=== PATIENT | male | born 1950 | race Caucasian/White ===

== ENCOUNTER 2020-12-07 01:40 | Day surgery (SDC) | payer MEDICARE, SELFPAY ==
[2020-11-24 15:51] VITALS: BMI 38.5
--- NOTE | 2020-12-07 08:56 | WPDANESEPPF ---
Anes - Initial Pre Proc Eval Procedure: Operation Date: 12/07/20 09:30 Proposed Procedures p Screening Colonoscopy - Blanco Mar MD Date/Time: 12/07/20 08:56 Surgeon: Blanco Mar MD Pre Op Diagnosis: hx of colon polyps Patient Data Age: 70 Gender: M Height: 1.83 m Weight: 129 kg Allergies Allergy/AdvReac Type Severity Reaction Status Date / Time Penicillins Allergy Unknown Unknown Verified 12/07/20 08:57 Home Medications Medication Instructions Recorded Confirmed Type doxazosin 2 mg PO QPM 11/24/20 11/24/20 History irbesartan 150 mg PO QPM 11/24/20 11/24/20 History magnesium oxide 500 mg PO DAILY 11/24/20 11/24/20 History smssgwrrhxsz-tee-flky-FA-vit K 1 tablet PO DAILY 11/24/20 11/24/20 History [Adults Multivitamin] omeprazole 20 mg PO QPM 11/24/20 11/24/20 History Patient hx anesthesia problems: none Family hx anesthesia problems: none [facility] Past Medical History Medical History (Updated 12/07/20 @ 08:57 by Huy Laurent MD) HTN (hypertension) Obesity Paroxysmal A-fib Social History Social History Years smoked: 10 Tobacco type: cigarettes and pipe Alcohol intake: never Substance use: never Living arrangements: with family Spiritual care concerns: No Anes - Eval Final PreProcedure Day of Procedure 12/07/20 08:56 Patient weight: obese Heart: regular rate and rhythm Lungs: clear to auscultation Airway: Mallampati scale class II Neurological: alert and oriented Last oral intake: >/= 8 hours ASA classification: III Emergent: no Anesthetic plan: proceed Anesthesia type and monitoring: general GIVS and standard monitoring Informed Consent: The patient's anesthetic plan and its attendant risks and benefits were discussed with the patient/family/POA. Questions were solicited and answers provided to the satisfaction of the patient/family/POA.
[2020-12-07 08:58] VITALS: BP 176/75; PULSE 77; RESP 18; TEMP 36.6; O2SAT 97; BMI 38.0
[2020-12-07] MEDS: LACTATED RINGERS 1,000 ML 30 ML IV CONT (09:02)
--- NOTE | 2020-12-07 10:19 | PM.HPGS ---
History of Present Illness History of Present Illness Consent: Risks, benefits, and alternatives have been discussed and questions answered. Patient agrees to proceed with procedure. Chief complaint: hx of colon polyps Narrative: Bryan Marcial is a 70 year old male Referred for colon cancer screening. He has a history of polyps Review of Systems Review of Systems: All systems reviewed & are unremarkable except as noted in HPI and below PMFSH Past Medical History Medical History HTN (hypertension) Obesity Paroxysmal A-fib Social History Social History Years smoked: 10 Tobacco type: cigarettes and pipe Alcohol intake: never Substance use: never Living arrangements: with family Spiritual care concerns: No Meds Home Medications and Allergies Home Medications Medication Instructions Recorded Confirmed Type doxazosin 2 mg PO QPM 11/24/20 11/24/20 History irbesartan 150 mg PO QPM 11/24/20 11/24/20 History magnesium oxide 500 mg PO DAILY 11/24/20 11/24/20 History dkbmcvmwiamk-awh-mbrz-FA-vit K 1 tablet PO DAILY 11/24/20 11/24/20 History [Adults Multivitamin] omeprazole 20 mg PO QPM 11/24/20 11/24/20 History Allergies Allergy/AdvReac Type Severity Reaction Status Date / Time Penicillins Allergy Unknown Unknown Verified 12/07/20 08:57 Vital Signs Vital Signs - 24 hr 12/07/20 08:58 Temperature 36.6 C Pulse Rate 77 Respiratory Rate 18 Blood Pressure 176/75 H Pulse Oximetry 97 Exam Const: General: alert Orientation/consciousness: patient oriented x3 Resp: Auscultation: clear to auscultation bilaterally Cardio: Rhythm: regular rhythm GI: GI Palp: Yes Soft to palpation and No Tenderness to palpation present (GI) Neuro: General: patient oriented x3 Assessment and Plan Assessment and plan (1) Colon cancer screening: Code(s): Z12.11 - Encounter for screening for malignant neoplasm of colon Status: Acute Assessment and Plan: Colonoscopy with possible biopsy or polypectomy or cautery or injection of substances.
[2020-12-07 10:36] VITALS: BP 121/78; PULSE 80; RESP 28; O2SAT 97
[2020-12-07 10:46] VITALS: BP 151/84; PULSE 75; RESP 21; O2SAT 95
[2020-12-07 10:56] VITALS: BP 160/96; PULSE 68; RESP 25; O2SAT 96
== END 2020-12-07 11:04 | disposition home or self-care (01) ==
PROVIDERS: PCP Internal Medicine; Visit Provider Internal Medicine Gastroenterology
PROC: 0DJD8ZZ Inspection of Lower Intestinal Tract, Via Natural or Artificial Opening Endoscopic (ICD-10-PCS; CPT 45378; principal; 2020-12-07 09:30)
DX: Z12.11 Encounter for screening for malignant neoplasm of colon (principal); Z86.010 Personal history of colon polyps; K57.30 Diverticulosis of large intestine without perforation or abscess without bleeding; K63.5 Polyp of colon; I48.0 Paroxysmal atrial fibrillation; F17.210 Nicotine dependence, cigarettes, uncomplicated; E66.9 Obesity, unspecified; Z68.38 Body mass index [BMI] 38.0-38.9, adult; I10 Essential (primary) hypertension
CPT/HCPCS: 45380; 88305; J2704; J7120

== ENCOUNTER 2023-12-04 20:23 | Emergency (ER) | payer MEDICARE, SELFPAY ==
--- NOTE | ~2023-12-04 | CT_ITS ---
EXAMINATION: CT abdomen pelvis wo con DATE: 12/05/2023 00:32 INDICATION: Right flank pain TECHNIQUE: Computed tomography (CT) of the abdomen and pelvis was performed without intravenous contr ast. Automated exposure control and iterative reconstruction technique were employed. The dose-length product was 1252.67 mGy-cm. COMPARISON: 12/27/2008 FINDINGS: A few scattered tiny calcified pulmonary nodules along with multiple splenic calcifications consisten t with old granulomatous disease. Mild right basilar atelectasis. Heart size is normal. No pericardia l or pleural effusion. Small sliding-type hiatal hernia. Liver, gallbladder, pancreas, bilateral adre nal glands and left kidney are normal. Mild right hydronephrosis with mild perinephric and periureter al stranding likely secondary to at least partial obstruction from a 2 mm stone at the distalmost rig ht ureter. Bladder is normal. Mild prostatomegaly. Moderate scattered colonic diverticulosis without adjacent inflammatory change to suggest diverticulitis. Small bowel and appendix are normal. No free intraperitoneal gas or fluid. No pathologically enlarged abdominal or pelvic lymphadenopathy. Severe lumbar and lower thoracic spondylosis. IMPRESSION: 1. At least partially obstructing 2 mm distal right ureteral stone with mild right hydronephrosis. Gi kathleen the perinephric stranding would correlate with urinalysis to exclude associated urinary tract inf ection. Reviewed, dictated and finalized at location A. IMPRESSION: 1. At least partially obstructing 2 mm distal right ureteral stone with mild ri ght hydronephrosis. Given the perinephric stranding would correlate with urinal ysis to exclude associated urinary tract infection.
[2023-12-04 20:24] VITALS: BP 136/98; PULSE 82; RESP 18; TEMP 36; O2SAT 93
[2023-12-04 23:43] LABS: Basophils Percent Auto 0.2 % (0.2-1.2); Eosinophils Percent Auto 0.2 % (0-4.4); Hematocrit 45.7 % (42.0-52.0); Hemoglobin 15.4 g/dL (14.0-18.0); Immature Granulocyte Absolute 0.06 K/mm3 (0.00-0.031); Immature Granulocyte Percent A 0.5 % (0-0.5); Lymphocytes Absolute Auto 0.98 K/mm3 (0.9-3.2); Lymphocytes Percent Auto 7.5 % (18.3-44.2); Mean Corpuscular HGB Conc 33.7 g/dl (32-36); Mean Corpuscular Hemoglobin 30.7 pg (26-34); Mean Corpuscular Volume 91.2 fl (80-100); Monocytes Absolute Auto 0.6 K/mm3 (0.1-0.6); Monocytes Percent Auto 4.9 % (2.6-8.5); Neutrophils Absolute Auto 11.3 K/mm3 (1.3-6.7); Neutrophils Percent Auto 86.7 % (45.5-73.1); Platelet Count Result 248 k/mm3 (150-375); Red Blood Count 5.01 M/mm3 (4.6-6.20)
[2023-12-04 23:59] LABS: Alanine Aminotransferase 28 U/L (6-50); Albumin Level 4.5 g/dL (3.5-5.1); Alkaline Phosphatase 67 U/L (38-126); Anion Gap 11 mmol/L (4-12); Aspartate Amino Transferase 26 U/L (17-59); Bilirubin,Total 0.5 mg/dL (0.2-1.3); Blood Urea Nitrogen 22 mg/dL (9-20); Calcium 9.5 mg/dL (8.4-10.2); Carbon Dioxide 26 mmol/L (22-30); Chloride 101 mmol/L (98-107); Estimated CRCL calculation 54 ml/min; Estimated Glomerular Filt Rate 46; Glucose 161 mg/dL (65-110); Potassium 4.3 mmol/L (3.4-5.0); Sodium 138 mmol/L (137-145)
[2023-12-05] MEDS: ONDANSETRON INJ 4 MG/2 ML VIAL IV PUSH (00:09)
[2023-12-05] MEDS: MORPHINE SULFATE (*CRX) 4 MG/ML INJ IV PUSH (00:09)
[2023-12-05] MEDS: SODIUM CHLORIDE 0.9% IV 500 ML 999 ML IV CONT (00:10)
--- NOTE | 2023-12-05 00:16 | ED.BACK ---
HPI - Back Pain/Injury General Chief Complaint: Back Pain/Injury Stated Complaint: low back pain Time Seen by Provider: 12/04/23 23:52 Source: patient Mode of arrival: ambulatory Limitations: no limitations History of Present Illness HPI Narrative: This is a 73-year-old male that presents to the emergency department for right flank pain ongoing tonight. Reports the pain feels similar to when he had a kidney stone. Reports he had some difficulty urinating. Reports nausea and vomiting Denies fevers, dysuria, or hematuria. Related Data Home Medications Medication Instructions Recorded Confirmed doxazosin 2 mg tablet 2 mg PO QPM 11/24/20 11/24/20 irbesartan 150 mg tablet 150 mg PO QPM 11/24/20 11/24/20 magnesium oxide 500 mg capsule 500 mg PO DAILY 11/24/20 11/24/20 multivit with minerals-iron 18 1 tablet PO DAILY 11/24/20 11/24/20 mg-folic ac 400 mcg-vit K 25 mcg tablet (Adults Multivitamin) omeprazole 20 mg capsule,delayed 20 mg PO QPM 11/24/20 11/24/20 release Allergies Allergy/AdvReac Type Severity Reaction Status Date / Time Penicillins Allergy Unknown Unknown Verified 12/07/20 08:57 Review of Systems Review of Systems: CONSTITUTIONAL: Denies fever GASTROINTESTINAL: Reports abdominal pain, nausea, vomiting. Denies diarrhea. GENITOURINARY: Denies dysuria or hematuria. All systems reviewed & are unremarkable except as noted in HPI and below PMFSH Past Medical History Medical History HTN (hypertension) Obesity Paroxysmal A-fib Social History Social History Years smoked: 10 Tobacco type: cigarettes and pipe Alcohol intake: never Substance use: never Living arrangements: with family Spiritual care concerns: No Exam Narrative: GENERAL: Well-appearing, well-nourished, and in no acute distress. HEAD: Normocephalic, atraumatic. EYES: EOMI. CHEST: Clear to auscultation. No respiratory distress. No wheezes rales or rhonchi HEART: Regular rate and rhythm. No murmur heard. Normal peripheral pulses. ABDOMEN: Soft, nontender, nondistended, normal active bowel sounds. No CVA tenderness EXTREMITIES: Normal range of motion. No edema. SKIN: Warm, dry, no rash. NEURO: No focal deficits. Alert and oriented x3. PSYCH: Normal mood and affect Course Course Emergency Course: Patient updated on his workup. Resting comfortably Vital Signs Vital signs: Vital Signs Temperature 96.8 F L 12/04/23 20:24 Pulse Rate 82 12/04/23 20:24 Respiratory Rate 18 12/04/23 20:24 Blood Pressure 136/98 H 12/04/23 20:24 Pulse Oximetry 93 12/04/23 20:24 Oxygen Delivery Room Air 12/04/23 20:24 Temperature 96.8 F L 12/04/23 20:24 Pulse Rate 82 12/05/23 01:26 Respiratory Rate 17 12/05/23 01:26 Blood Pressure 165/83 H 12/05/23 01:26 Pulse Oximetry 96 12/05/23 01:26 Oxygen Delivery Room Air 12/04/23 20:24 MDM - Back Pain/Injury MDM Narrative Medical decision making narrative: Patient presents to the emergency department for right flank pain. Reporting history of kidney stones. Patient's vitals are stable. CBC with leukocytosis to 13. Metabolic panel with mild elevation creatinine 1.5. Patient was hydrated with IV fluids in the ED. Urine without evidence of infection. Does show red blood cells. CT abdomen and pelvis shows a distal 1 mm stone. Patient was updated on his workup. Resting comfortably. In agreement with plan of care. Will be given follow-up with urology. He was given warnings to return to the ER Differential Diagnosis Differential diagnosis: Likely strain of lumbar region, renal colic, pyelonephritis and other (kidney stone) Lab Data Attestation: I reviewed the patient's lab results. 12/04/23 23:36 12/04/23 23:36 Labs: Lab Results 12/04/23 Range/Units 23:36 WBC 13.0 H (4.5-10.0) K/mm3 RBC 5.0
[2023-12-05 00:43] LABS: Appearance Urine Clear (Clear); Bilirubin Urine Negative (Negative); Blood Urine 2+ (Negative); Color Urine Yellow (Yellow); Glucose Urine UA 2+ mg/dL (Negative); Ketones Urine Negative (Negative); Leukocyte Esterase Ur Negative LEU/UL (Negative); Nitrate Urine Negative (Negative); Protein Urine Trace mg/dL (Negative); Urobilinogen Urine 0.2 mg/dL (<2.0); pH Urine 5.5 (5.0-9.0)
[2023-12-05 00:46] LABS: WBC Urine 0-5 /hpf (0-3)
[2023-12-05 00:47] LABS: Add Urine Microscopic? YES; Bacteria Urine Trace /hpf
[2023-12-05 01:26] VITALS: BP 165/83; PULSE 82; RESP 17; O2SAT 96
[2023-12-05 02:35] VITALS: BP 166/74; PULSE 85; RESP 15; O2SAT 98
== END 2023-12-05 02:43 | disposition home or self-care (01) ==
PROVIDERS: Student in an Organized Health Care Education/Training Program; Emergency Provider Physician Assistant; PCP Family Medicine
DX: N20.1 Calculus of ureter (principal); I10 Essential (primary) hypertension; I48.0 Paroxysmal atrial fibrillation; F17.210 Nicotine dependence, cigarettes, uncomplicated
CPT/HCPCS: 36415; 74176; 80053; 81001; 85025; 96361; 96374; 96375; 99284; J2270; J2405; J7040